=== PATIENT | male | born 1960 | race Caucasian/White ===

== ENCOUNTER 2022-03-10 11:06 | Emergency (ER) | payer OTHER ==
[2022-03-11] MEDS ORDERED: VIBRAMYCIN100 MG PO (00:46)
== END 2022-03-10 18:35 | disposition left against medical advice (07) ==
LOC: FER 11:06
DX: S61.211A Laceration without foreign body of left index finger without damage to nail, initial encounter (principal); Z53.29 Procedure and treatment not carried out because of patient's decision for other reasons; Z28.310 Unvaccinated for COVID-19
CPT/HCPCS: 73130

== ENCOUNTER 2022-03-10 21:30 | Emergency (ER) | payer OTHER ==
[2022-03-11] MEDS ORDERED: VIBRAMYCIN100 MG PO (00:46)
== END 2022-03-11 01:19 | disposition home or self-care (01) ==
LOC: FER 21:30
DX: S61.211A Laceration without foreign body of left index finger without damage to nail, initial encounter (principal); I10 Essential (primary) hypertension; E11.9 Type 2 diabetes mellitus without complications; F17.210 Nicotine dependence, cigarettes, uncomplicated; Z23 Encounter for immunization; Z28.310 Unvaccinated for COVID-19; Z88.0 Allergy status to penicillin; W45.8XXA Other foreign body or object entering through skin, initial encounter; Y92.009 Unspecified place in unspecified non-institutional (private) residence as the place of occurrence of the external cause
CPT/HCPCS: 90715; J2001